=== PATIENT | female | born 1990 | race Caucasian/White ===

== ENCOUNTER 2018-02-11 10:09 | Emergency (ER) | payer SELFPAY ==
[2018-02-11 11:44] LABS: Bilirubin Negative (Negative); Blood, Urine Trace (Negative); Clarity Cloudy (Clear); Glucose, Urine (Dipstick) Negative (Negative); Leukocyte Small (Negative); Nitrite Negative (Negative); Protein, Urine (Dipstick) 30 mg/dL (Neg-Trace); pH, Urine 7.5 (5.0-9.0)
[2018-02-11 11:44] LABS: #Eosinphils 0.1 thou/uL (0.0-0.7); #Lymphocytes 1.9 thou/uL (1.20-3.40); #Monocytes 0.7 thou/uL (0.11-0.59); #Neutrophils 2.7 thou/uL (1.40-6.50); %Basophils 0.8 % (0.0-1.0); %Eosinophils 2.2 % (0.0-10.0); %Lymphocytes 35.1 % (21.0-51.0); %Monocytes 13.5 % (0.0-10.0); %Neutrophils 48.4 % (42.0-75.0); Hemoglobin 12.8 g/dL (12.0-16.0); Mean Corpuscular Hemoglobin 27.2 pg (27.0-31.0); Mean Platelet Volume 8.3 fL (7.4-10.4); Platelet Count 245 thou/uL (130-400); RBC Distribution Width 13.1 % (11.5-14.5); White Blood Cell (WBC) Count 5.5 thou/uL (4.8-10.8)
[2018-02-11 11:51] LABS: Pregnancy Test - Urine (BHCG) Negative (Negative); Pregu Control Background? CLEAR/WHITE (CLR/WHITE); Pregu Control Bar Appear? YES (CONTROL BAR)
[2018-02-11 11:52] LABS: Wet Prep Clue Cells Clue Cells Absent (None Seen); Wet Prep Trichomonas Trichomonas Absent (None Seen)
[2018-02-11 11:53] LABS: Wet Prep Pathologist Review Spermatozoa Absent (None Seen); Wet Prep Spermatozoa 2nd Revie Agree with result (None Seen)
[2018-02-11 11:54] LABS: RBC/HPF 0-3 HPF (0-3)
[2018-02-11 11:55] LABS: Bacteria/HPF 3+ HPF (None Seen)
[2018-02-11 11:56] LABS: ALT (SGPT) 24 U/L (8-55); AST (SGOT) 24 U/L (5-34); Albumin 4.4 g/dL (3.5-5.0); Alkaline Phosphatase 72 U/L (40-150); Anion Gap 13 mmol/L (10-20); BUN (Urea Nitrogen) 11 mg/dL (7.0-18.7); Bilirubin, Total 0.5 mg/dL (0.2-1.2); Calc. Creatinine Clearance 0 mL/min (70-130); Calcium 9.6 mg/dL (7.8-10.44); Carbon Dioxide 26 mmol/L (22-29); Chloride 107 mmol/L (98-107); Estimated GFR-MDRD 90; Globulin 2.8 g/dL (2.4-3.5); Glucose 79 mg/dL (70-105); Protein, Total 7.2 g/dL (6.0-8.3); Sodium 142 mmol/L (136-145)
[2018-02-11 18:10] LABS: HIV (1/2) Antibody/Antigen Non-Reactive (NonReactive); HIV 1/2 INDEX 0.07 S/CO (<1.00)
[2018-02-14 21:01] LABS: Chlamydia by PCR Not Detected (NotDetected); GC by PCR Not Detected (NotDetected)
== END 2018-02-11 12:20 | disposition home or self-care (01) ==
LOC: MADERS 10:09
DX: K12.1 Other forms of stomatitis (principal)
CPT/HCPCS: 36415; 80053; 81003; 81015; 81025; 85025; 87210; 87252; 87389; 87491; 87591; 99283